=== PATIENT | female | born 1995 | race Caucasian/White ===

== ENCOUNTER 2017-04-24 13:50 | Emergency (ER) ==
[2017-04-24 13:56] VITALS: BP 121/82; TEMP 99.2; BMI 27.3
[2017-04-24 14:15] LABS: URINE PREGNANCY INTERNAL QC INTERNAL QC VALID
--- NOTE | 2017-04-24 14:47 | CT ---
EXAM: CT of the thoracic spine without contrast. HISTORY: Back pain. Scoliosis. COMPARISON: Chest x-ray dated dated 10/13/2010. TECHNIQUE: Contiguous axial images were obtained through the thoracic spine at 3 mm intervals. Sag ittal and coronal reformats were reviewed. FINDINGS: There are postoperative changes with Bryson rods extending from T1 through L2. The h ardware appears intact on these images. There is significant streak artifact. Curvature of the spi ne is seen to the right, measuring approximately 54 degrees. The vertebral heights are well maintai david. No acute fractures are identified. There are no lytic or blastic lesions. Disc narrowing is seen at all levels of the spine. Anterior bridging osteophytes is seen at all levels of the spine. N o definite spinal canal or neural foramen narrowing is seen. There is atelectasis in the right lung base. There are no displaced rib fractures. IMPRESSION: 1. Marked scoliosis of the spine to the right with history of and effusion. No evidence of hardwar e failure. 2. No acute fractures. Diffuse ankylosis of the spine.
[2017-04-24] MEDS ORDERED: DILAUDID 1 MG/ML SYRINGE IM STA (14:50)
[2017-04-24] MEDS ORDERED: TORADOL IM STA (14:50)
[2017-04-24] MEDS ORDERED: ZOFRAN 4 MG/2 ML IM STA (14:50)
--- NOTE | 2017-04-24 14:54 | ED.PDOC ---
General ED Provider: Dr. RONNY SANTOS-ER Chief Complaint: Back Pain Stated Complaint: my upper back hurts to move...hx of okeefe rods--just hurts wtih certain movment of the back--no cp or sob or nausea/vomiting Time Seen by Physician: 13:55 Mode of Arrival: Walk-In Information Source: Patient Exam Limitations: No limitations Nursing and Triage Documentation Reviewed and Agree: Yes Musculoskeletal Complaint Exam - Back Pain Complaint/Exam Mechanism of Injury: Reports: No known trauma Onset/Duration: several days Symptoms Are: Still present Timing: Intermittent Episodes Lasting: Days Initial Severity: Mild Current Severity: Moderate Location: Reports: Discrete (right thoracic paraspinal muscles) Character: Reports: Dull, Aching, Throbbing, Spasmodic, Stiffness Aggravating: Reports: Movements, Lifting, Bending, Walking Alleviating: Reports: None Associated Signs and Symptoms: Denies: Swelling, Redness, Bruising, Fever, Weakness, Numbness, Tingling, Abdominal pain, Flank pain, Bladder incontinence, Bowel incontinence, Weight loss, Pain with weight bearing Related History: Reports: Similar episode TAD Risk Factors: Reports: None Cauda Equina Risk Factors: Reports: None Epidural Abcess Risk Factors: Reports: None Focal Tenderness: Yes Paraspinal Muscle Tenderness: Yes Paraspinal Muscle Spasm: Yes Scoliosis: No Lordosis: No Kyphosis: No SLR Test: Right Negative, Left Negative Hip Motion Testing Pain: Right Negative, Left Negative Focal Weakness: Present: None Focal Sensory Loss: Present: None Gait: Present: Abnormal Differential Diagnoses: Arthritis, Herniated Disk, Strain, Sprain Review of Systems - Review Of Systems Constitutional: Reports: No symptoms Eyes: Reports: No symptoms Ears, Nose, Mouth, Throat: Reports: No symptoms Respiratory: Reports: No symptoms Cardiac: Reports: No symptoms GI: Reports: No symptoms : Reports: No symptoms Musculoskeletal: Reports: Back pain, Muscle pain Skin: Reports: No symptoms Neurological: Reports: No symptoms Endocrine: Reports: No symptoms Hematologic/Lymphatic: Reports: No symptoms All Other Systems: Reviewed and Negative Past Medical History - Past Medical History Previously Healthy: Yes Endocrine: Reports: Unknown Cardiovascular: Reports: Unknown Respiratory: Reports: Unknown Hematological: Reports: Unknown Gastrointestinal: Reports: Unknown Genitourinary: Reports: Unknown Neuro/Psych: Reports: Other Musculoskeletal: Reports: Back Pain, Other (scoliosis) Cancer: Reports: None Last Menstrual Period: 03/10/17 (PERIODS ARE IRREGULAR) - Surgical History General Surgical History: Reports: Other (okeefe rods for scoliosis) - Family History Family History: Reports: Unknown - Social History Smoking Status: Current every day smoker, Heavy tobacco smoker Hx Substance Use: No Alcohol Screening: Occasionally Lives: With family - Immunizations Tetanus Shot up to Date: No Physical Exam - Physical Exam Appearance: Well-appearing, No pain distress, Well-nourished Pain Distress: Moderate Eyes: SERAFIN, EOMI, Conjunctiva clear ENT: Ears normal, Nose normal, Oropharynx normal Neck: Supple Respiratory: Airway patent, Breath sounds clear, Breath sounds equal, Respirations nonlabored Cardiovascular: RRR, Pulses normal, No rub, No murmur GI/: Soft, Nontender, No masses, Bowel sounds normal, No Organomegaly Musculoskeletal: No edema, No calf tenderness, Limited ROM (she has palpable tenderness to the right thoracic paraspinal area..) Skin: Warm, Dry, Normal color Neurological: Sensation intact Psychiatric: Affect appropriate, Mood appropriate Interpretation - Radiology Interpretation Radiology Interpretation By: Radiologist Radiology Results: Negative Exam Interpreted: CT Scan Critical Care Note - Critical Care Note Total Time (mins): 0 Course - Course Orders, Labs, Meds: Lab Review 04/24/17 14:02 Urine Test Negative Orders Category Date Time Status URINE Stat LAB 04/24/17 14:02 Completed Hydromorphone HCl [Dilaudid 1 mg/ml Syringe] MEDS 04/24/17 14:50 Stat 1 mg IM ONCE STA Ketorolac Tromethamine [Toradol] MEDS 04/24/17 14:50 Stat 60 mg IM ONCE STA Ondansetron HCl/Pf [Zofran 4 mg/2 ml] MEDS 04/24/17 14:50 Stat 4 mg IM ONCE STA CT THORACIC SPINE W/O CONTRAST Stat RADS 04/24/17 14:00 Completed Medications Generic Name Dose Route Start Last Admin Trade Name Freq PRN Reason Stop Dose Admin Hydromorphone HCl 1 mg 04/24/17 14:50 Dilaudid 1 Mg/Ml Syringe IM 04/24/17 14:51 ONCE STA Ketorolac Tromethamine 60 mg 04/24/17 14:50 Toradol IM 04/24/17 14:51 ONCE STA Ondansetron HCl 4 mg 04/24/17 14:50 Zofran 4 Mg/2 Ml IM 04/24/17 14:51 ONCE STA Vital Signs: Temp Pulse Resp BP Pulse Ox 04/24/17 13:51 99.2 F 89 20 121/82 98 Departure - Departure Time of Disposition: 14:56 Disposition: HOME SELF-CARE Discharge Problem: Thoracic back pain Qualifiers: Chronicity: acute Back pain laterality: right Qualifier Code: (M54.6) Pain in thoracic spine Instructions: Muscle Spasm (ED), Thoracic Back Strain (ED) Condition: Good Pt referred to PMD for follow-up: Yes Additional Instructions: norco 7.5mg q 4hrs prn #15--flexeril 10mg tid #21--heat alt ice--f/u with your back surgeon next week Allergies/Adverse Reactions: Allergies No Known Allergies Allergy (Unverified 04/24/17 13:56) Home Medications: Ambulatory Orders 1 [No Reported Medications] 04/24/17 Disposition Discussed With: Patient, Family
== END 2017-04-24 15:19 | disposition home or self-care (01) ==
LOC: ED 13:50
DX: M54.6 Pain in thoracic spine (principal); Z98.1 Arthrodesis status; F17.210 Nicotine dependence, cigarettes, uncomplicated
CPT/HCPCS: 81025; 96372; 99284

== ENCOUNTER 2017-05-28 06:08 | Emergency (ER) ==
[2017-05-28 06:08] VITALS: BMI 27.3
[2017-05-28 06:21] VITALS: BP 117/78; TEMP 99
--- NOTE | 2017-05-28 06:45 | ED.PDOC ---
General Stated Complaint: 1 week history of abdominal pain diffuse in nature with associated no nausea. Time Seen by Physician: 06:43 Mode of Arrival: Walk-In Information Source: Patient, Family Exam Limitations: No limitations Nursing and Triage Documentation Reviewed and Agree: Yes <JODI TOUSSAINT - Last Filed: 05/28/17 06:43> <ALVAREZ DUGAN - Last Filed: 05/28/17 07:30> ED Provider: Dr. ALVAREZ DUGAN Chief Complaint: Abdominal Pain GI Complaint Exam - Abdominal Pain Complaint/Exam Onset: Gradual Duration: 1 week Symptoms Are: Still present Timing: Constant Initial Severity: Severe Location of Pain: Diffuse Radiates To: Reports: Flank Character: Reports: Aching, Throbbing Aggravating: Reports: None Alleviating: Reports: None Associated Signs and Symptoms: Reports: Back pain, Decreased appetite. Denies: Diaphoresis, Fever, Cough, Chest pain, Dizziness, Constipation, Blood in stool, Dysuria, Urinary frequency, Decreased urine output, Vaginal bleeding, Vaginal discharge, Nausea, Vomiting, Diarrhea, Sore throat, Decreased activity AAA Risk Factors: Reports: None Cardiac Risk Factors: Reports: None Ectopic Risk Factors: Reports: None Ovarian Torsion Risk Factors: Reports: None Surgical Obstruction Risk Factors: Reports: None Related Surgical History: Reports: None Patient Rh Status: Unknown Abdominal Findings: Present: CVA Tenderness. Absent: Pulsatile mass, Abdominal distention, Unequal femoral pulses, Rebound tenderness, Peritoneal signs, McBurney's Point tender, Hernia, Inguinal swelling Differential Diagnoses: Appendicitis, Gastroenteritis, Ureteral Stone, UTI, <JODI TOUSSAINT - Last Filed: 05/28/17 06:43> Review of Systems - Review Of Systems Constitutional: Reports: Loss of appetite Eyes: Reports: No symptoms Ears, Nose, Mouth, Throat: Reports: No symptoms Respiratory: Reports: No symptoms GI: Reports: Abdominal pain, Nausea : Reports: Dysuria Musculoskeletal: Reports: Back pain Skin: Reports: No symptoms Neurological: Reports: No symptoms Endocrine: Reports: No symptoms Hematologic/Lymphatic: Reports: No symptoms All Other Systems: Reviewed and Negative <JODI TOUSSAINT - Last Filed: 05/28/17 06:43> Past Medical History - Past Medical History Previously Healthy: Yes Endocrine: Reports: None Cardiovascular: Reports: None Respiratory: Reports: None Hematological: Reports: None Gastrointestinal: Reports: None Genitourinary: Reports: None Neuro/Psych: Reports: None Musculoskeletal: Reports: Back Pain Cancer: Reports: None Last Menstrual Period: 05/14/17 Other Pertinent Past Medical History: SCOLIOSIS - Surgical History General Surgical History: Reports: Other (okeefe rods for scoliosis) - Family History Family History: Reports: Unknown - Social History Smoking Status: Current every day smoker, Heavy tobacco smoker Hx Substance Use: No Alcohol Screening: Occasionally - Immunizations Tetanus Shot up to Date: Yes <JODI TOUSSAINT - Last Filed: 05/28/17 06:43> Physical Exam - Physical Exam Appearance: Ill-appearing, Obese Ill-appearing: Mild Pain Distress: Moderate Neck: Supple Respiratory: Airway patent, Breath sounds clear, Breath sounds equal, Respirations nonlabored Cardiovascular: RRR, Pulses normal, No rub, No murmur GI/: Soft, Bowel sounds normal, Tender (mild diffuse ) Musculoskeletal: Normal strength, ROM intact, No edema, No calf tenderness Skin: Warm, Dry, Normal color Neurological: Sensation intact, Motor intact, Alert, Oriented Psychiatric: Affect appropriate, Mood appropriate, Anxious <JODI TOUSSAINT - Last Filed: 05/28/17 06:43> Critical Care Note - Critical Care Note Total Time (mins): 0 <JODI TOUSSAINT - Last Filed: 05/28/17 06:43> Course - Course Hematology/Chemistry: 05/28/17 06:30 05/28/17 06:30 <ALVAREZ DUGAN - Last Filed: 05/28/17 07:30> - Course Orders, Labs, Meds: Lab Review 05/28/17 05/28/17 05/28/17 06:30 06:30 06:30 WBC 6.65 RBC 4.52 Hgb 13.7 Hct 40.3 MCV 89.2 MCH 30.3 MCHC 34.0 RDW Coeff of El 12.3 Plt Count 313 Immature Gran % (Auto) 0.3 Neut % (Auto) 52.3 Lymph % (Auto) 34.3 [place] % (Auto) 8.1 Eos % (Auto) 4.5 Baso % (Auto) 0.5 Immature Gran # (Auto) 0.0 Neut # 3.5 Lymph # 2.3 [place] # 0.5 Eos # 0.3 Baso # 0.0 Sodium 141 Potassium 3.8 Chloride 107 Carbon Dioxide 24 Anion Gap 13.8 BUN 11 Creatinine 0.78 Estimated GFR (MDRD) 92.00 BUN/Creatinine Ratio 14.10 Glucose 99 Calcium 9.4 Total Bilirubin 0.39 AST 29 ALT 50 Alkaline Phosphatase 74 Total Protein 7.3 Albumin 3.9 Globulin 3.4 Albumin/Globulin Ratio 1.15 Amylase 39 Lipase 16 Serum , Qual Negative Orders Category Date Time Status ED IV/MEDIPORT/POWERPORT .ONCE EMERGENCY 05/28/17 06:51 Active IV [ED IV/MEDIPORT/POWERPORT] .ONCE EMERGENCY 05/28/17 06:21 Active AMYLASE Stat LAB 05/28/17 06:30 Completed CBC W/ AUTO DIFF Stat LAB 05/28/17 06:30 Completed COMPREHENSIVE METABOLIC PANEL Stat LAB 05/28/17 06:30 Completed LIPASE Stat LAB 05/28/17 06:30 Completed SERUM TEST [SERUM ] Stat LAB 05/28/17 06:30 Completed UA [URINALYSIS C & S IF INDICATED] Stat LAB 05/28/17 06:25 Received 0.9 % Sodium Chloride [Saline Flush] MEDS 05/28/17 06:21 Active 1 syr IVF PRN PRN 0.9 % Sodium Chloride [Saline Flush] MEDS 05/28/17 06:51 Active 1 syr IVF PRN PRN Sodium Chloride 0.9% [Sodium Chloride] 1,000 ml MEDS 05/28/17 06:51 Active IV BOLUS Medications Generic Name Dose Route Start Last Admin Trade Name Freq PRN Reason Stop Dose Admin Sodium Chloride 1,000 mls @ 1,000 mls/hr 05/28/17 06:51 05/28/17 07:11 Sodium Chloride IV 05/28/17 07:50 1,000 mls/hr BOLUS STA Administration Sodium Chloride 1 syr 05/28/17 06:21 05/28/17 07:11 Saline Flush IVF 1 syr PRN PRN Administration To flush IV Sodium Chloride 1 syr 05/28/17 06:51 05/28/17 07:11 Saline Flush IVF 1 syr PRN PRN Administration To flush IV Vital Signs: Temp Pulse Resp BP Pulse Ox 05/28/17 06:08 99 F 64 20 117/78 98 Departure <JODI TOUSSAINT - Last Filed: 05/28/17 06:43> - Departure Time of Disposition: 08:30 (took over care at 7 am blood work and test reports given to the pt with kelsey at bedside .pt was seen at all times with KELSEY AT BEDSIDE , PT REFUSED IMAGING OF THE ABDOMEN ) Pt referred to PMD for follow-up: Yes <ALVAREZ DUGAN - Last Filed: 05/28/17 07:30> - Departure Disposition: HOME SELF-CARE Discharge Problem: Abdominal pain Instructions: Abdominal Pain (ED) Condition: Good Allergies/Adverse Reactions: Allergies No Known Allergies Allergy (Verified 05/28/17 06:17) Home Medications: Ambulatory Orders 1 [No Reported Medications] 04/24/17
[2017-05-28] MEDS ORDERED: SODIUM CHLORIDE 1,000 ML IV STA (06:51)
[2017-05-28 06:54] LABS: SERUM PREGNANCY INTERNAL QC INTERNAL QC VALID
[2017-05-28 06:55] LABS: BASOPHILS % (AUTO) 0.5 % (0.0-3.0); EOSINOPHILS # (AUTO) 0.3 K/ul (0.0-0.7); EOSINOPHILS % (AUTO) 4.5 % (0.0-7.0); HEMATOCRIT 40.3 % (37.0-47.0); HEMOGLOBIN 13.7 g/dl (12.0-16.0); IMMATURE GRANULOCYTE % (AUTO) 0.3 % (0.0-5.0); LYMPHOCYTES # (AUTO) 2.3 K/uL (0.60-3.4); LYMPHOCYTES % (AUTO) 34.3 (10.0-50.0); MEAN CORPUSCULAR HEMOGLOBIN 30.3 pg (27.0-31.0); MEAN CORPUSCULAR VOLUME 89.2 fl (81.0-99.0); MONOCYTES # (AUTO) 0.5 K/uL (0.4-2.0); MONOCYTES % (AUTO) 8.1 (0-10); NEUTROPHILS # (AUTO) 3.5 K/ul (2.0-6.9); NEUTROPHILS % (AUTO) 52.3; PLATELET COUNT 313 10^3/uL (140-440); RED BLOOD COUNT 4.52 10^6/ul (4.20-5.40); WHITE BLOOD COUNT 6.65 K/ul (4.6-10.2)
[2017-05-28 07:11] LABS: ALBUMIN 3.9 g/dL (3.4-5.0); ALBUMIN/GLOBULIN RATIO 1.15; ANION GAP 13.8; BILIRUBIN,TOTAL 0.39 mg/dL (0.00-1.20); BUN/CREATININE RATIO 14.1; CALCIUM 9.4 mg/dL (8.2-10.2); CREATININE 0.78 mg/dL (0.60-1.30); POTASSIUM 3.8 mmol/L (3.5-5.10); TOTAL PROTEIN 7.3 g/dL (6.4-8.2)
== END 2017-05-28 07:43 | disposition home or self-care (01) ==
LOC: ED 06:08
DX: R10.84 Generalized abdominal pain (principal); R30.0 Dysuria; M54.9 Dorsalgia, unspecified; F17.210 Nicotine dependence, cigarettes, uncomplicated
CPT/HCPCS: 36415; 80053; 82150; 83690; 84703; 85025; 99283